=== PATIENT | female | born 1965 | race Caucasian/White ===

== ENCOUNTER 2024-11-01 07:17 | Day surgery (SDC) | payer BC ==
[~2024-11-01] VITALS: Ht 167.6 cm; Wt 127.0 kg
[~2024-11-01 07:17] MED LIST: CETI-24 PO; CRAN450T4 PO; ECOT81TA5 PO; FERR325T81 PO; FLUTISP; MIDAZOLAM INJ 2MG/2ML VIAL As Ordered ONE; MONT10TA97 PO; PANT40TA29 PO; PHENYLEPHRINE 10% OPHTH SOL 5ML OS PRN; ROSU20TA86 PO; VITA100093 PO; VITA100T91 PO; ZOLO100T PO; fentaNYL 100 MCG/2 ML INJECTION As Ordered ONE
[2024-11-01] MEDS: OFLOXACIN 0.3 % (OCUFLOX) OPTH SOL 5ML OS ONE (08:20)
[2024-11-01] MEDS: LIDOCAINE 3.5 % 1ML OPHTH TOPICAL GEL OU ONE (08:20)
[2024-11-01] MEDS: CYCLOPENTOLATE 1% OPHTH SOLN 2ML BTL OS SCH (08:22)
[2024-11-01] MEDS: TROPICAMIDE 1% OPHTH SOLN 15ML OS SCH (08:23)
[2024-11-01] MEDS: PHENYLEPHRINE 2.5% OPHTH SOL 2ML OS SCH (08:23)
[2024-11-01] MEDS ORDERED: ONDANSETRON 4MG 2ML VIAL As Ordered ONE (09:15)
[2024-11-01] MEDS: LIDOCAINE 1% SDV 5ML VIAL As Ordered ONE (09:19)
[2024-11-01] MEDS: BSS IRRIG/VANCO(10MG)/TOBRA(5MG)/EPINEPH(1:1000-0.5CC)500ML BAG-ORONLY As Ordered ONE (09:19)
[2024-11-01] MEDS: CEFUROXIME 1MG/0.1ML INTRACAMERAL INJ As Ordered ONE (09:19)
[2024-11-01 09:35] VITALS: BP 142/79; TEMP 97.4; O2SAT 97
== END 2024-11-01 09:46 | disposition home or self-care (01) ==
LOC: M SDC 07:17
PROVIDERS: ATTEND Ophthalmology
DX: H25.12 Age-related nuclear cataract, left eye (principal); E78.00 Pure hypercholesterolemia, unspecified; K21.9 Gastro-esophageal reflux disease without esophagitis; Z79.899 Other long term (current) drug therapy; Z79.82 Long term (current) use of aspirin; Z90.710 Acquired absence of both cervix and uterus; Z88.5 Allergy status to narcotic agent; F41.9 Anxiety disorder, unspecified
CPT/HCPCS: 66984; J0697; J2250; J2405; J3010; V2632

== ENCOUNTER 2024-11-08 06:28 | Day surgery (SDC) | payer BC ==
[~2024-11-08] VITALS: Ht 167.6 cm; Wt 126.9 kg
[~2024-11-08 06:28] MED LIST changes: -MIDAZOLAM INJ 2MG/2ML VIAL As Ordered ONE; +PHENYLEPHRINE 10% OPHTH SOL 5ML OD PRN; -PHENYLEPHRINE 10% OPHTH SOL 5ML OS PRN; -fentaNYL 100 MCG/2 ML INJECTION As Ordered ONE
[2024-11-08] MEDS: TROPICAMIDE 1% OPHTH SOLN 15ML OD SCH (07:00)
[2024-11-08] MEDS: LIDOCAINE 3.5 % 1ML OPHTH TOPICAL GEL OU ONE (07:00)
[2024-11-08] MEDS: PHENYLEPHRINE 2.5% OPHTH SOL 2ML OD SCH (07:00)
[2024-11-08] MEDS: CYCLOPENTOLATE 1% OPHTH SOLN 2ML BTL OD SCH (07:00)
[2024-11-08] MEDS: OFLOXACIN 0.3 % (OCUFLOX) OPTH SOL 5ML OD ONE (07:00)
[2024-11-08] MEDS ORDERED: fentaNYL 100 MCG/2 ML INJECTION As Ordered ONE (07:28)
[2024-11-08] MEDS ORDERED: MIDAZOLAM INJ 2MG/2ML VIAL As Ordered ONE (07:28)
[2024-11-08] MEDS: LIDOCAINE 1% SDV 5ML VIAL As Ordered ONE (08:16)
[2024-11-08] MEDS: BSS IRRIG/VANCO(10MG)/TOBRA(5MG)/EPINEPH(1:1000-0.5CC)500ML BAG-ORONLY As Ordered ONE (08:16)
[2024-11-08] MEDS: CEFUROXIME 1MG/0.1ML INTRACAMERAL INJ As Ordered ONE (08:19)
[2024-11-08 08:32] VITALS: BP 145/65; TEMP 97.1; O2SAT 96
== END 2024-11-08 08:41 | disposition home or self-care (01) ==
LOC: M SDC 06:28
PROVIDERS: ATTEND Ophthalmology
DX: H25.811 Combined forms of age-related cataract, right eye (principal); E78.00 Pure hypercholesterolemia, unspecified; K21.9 Gastro-esophageal reflux disease without esophagitis; F41.9 Anxiety disorder, unspecified; Z79.899 Other long term (current) drug therapy; Z79.82 Long term (current) use of aspirin; Z90.710 Acquired absence of both cervix and uterus; J30.1 Allergic rhinitis due to pollen
CPT/HCPCS: 66984; J0697; J2250; J3010; V2632